=== PATIENT | female | born 1965 | race Caucasian/White ===

== ENCOUNTER 2020-12-13 13:20 | Emergency (ER) | payer OTHER, MEDICAID ==
[~2020-12-13] VITALS: Ht 157.5 cm; Wt 104.3 kg
[2020-12-13 13:30] VITALS: BP_SYST 130
[2020-12-13] MEDS ORDERED: KETOROLAC TROMETHAMINE 60 MG/2 ML VIAL IM ONE (14:00)
[2020-12-13 16:32] LABS: BASOPHILS % (AUTO) 0.1 % (0.0-2.0); EOSINOPHILS # (AUTO) 0.2 K/uL (0.0-0.4); EOSINOPHILS % (AUTO) 1.9 % (0.0-4.0); HEMATOCRIT 38.8 % (36-48); LYMPHOCYTES # (AUTO) 0.6 K/uL (1.0-5.5); LYMPHOCYTES % (AUTO) 6.3 % (20.5-51.5); MEAN CORPUSCULAR HEMOGLOBIN 29 pg (27-31); MEAN CORPUSCULAR HGB CONC 33 % (32-36); MEAN CORPUSCULAR VOLUME 85 fL (79.0-98.0); MONOCYTES # (AUTO) 0.5 K/uL (0.0-1.0); MONOCYTES % (AUTO) 5.2 % (1.7-9.3); NEUTROPHILS # (AUTO) 8.1 K/uL (1.8-7.7); NEUTROPHILS % (AUTO) 86.5 % (40.0-70.0); PLATELET COUNT (AUTO) 218 K/uL (130-430); RED BLOOD CELL COUNT(AUTO) 4.55 MIL/uL (4.2-6.2); RED CELL DISTRIBUTION WIDTH 13.4 % (9.0-15.0); WHITE BLOOD COUNT (AUTO) 9.4 K/uL (4.8-10.8)
[2020-12-13 16:35] LABS: CALCIUM 8.2 mg/dL (8.4-11.0); CHLORIDE 105 mmol/L (98-107); CREATININE 0.81 mg/dL (0.55-1.30); GLUCOSE 100 mg/dL (70-99); POTASSIUM 3.5 mmol/L (3.5-5.1); SODIUM SERUM 141 mmol/L (136-145); UREA NITROGEN, BLOOD 19 mg/dL (8-21)
[2020-12-13 16:41] LABS: ALANINE AMINOTRANSFERASE 23 U/L (12-78); ALBUMIN 3.5 g/dL (3.4-4.8); ASPARTATE AMINOTRANSFERASE 25 U/L (10-37); TOTAL BILIRUBIN 0.2 mg/dL (0.0-1.0)
[2020-12-13 16:45] LABS: ANION GAP < 3 (5-15); GFR AFRICAN AMERICAN 94 mL/min (>90)
[2020-12-13 17:23] LABS: PROTHROMBIN TIME 10.1 SECS (9.5-12.5)
[2020-12-13] MEDS ORDERED: ACET1TAB23 PO (18:39)
[2020-12-13 18:51] VITALS: BP_SYST 128
== END 2020-12-13 18:57 | disposition home or self-care (01) ==
LOC: SED 13:20
DX: S76.112A Strain of left quadriceps muscle, fascia and tendon, initial encounter (principal); S20.212A Contusion of left front wall of thorax, initial encounter; S09.90XA Unspecified injury of head, initial encounter; M54.2 Cervicalgia; V43.52XA Car driver injured in collision with other type car in traffic accident, initial encounter; Y93.89 Activity, other specified; Y92.89 Other specified places as the place of occurrence of the external cause; Y99.8 Other external cause status
CPT/HCPCS: 36415; 70450; 71045; 71260; 72040; 72125; 73560; 74177; 76376; 80053; 81025; 84703; 85025; 85610; 86886; 86900; 86901; 96372; 99285; J1885; Q9967

== ENCOUNTER 2021-11-28 21:24 | Emergency (ER) | payer MEDICAID ==
[~2021-11-28] VITALS: Ht 157.5 cm; Wt 107.0 kg
[2021-11-28 22:14] VITALS: BP_SYST 132
--- NOTE | 2021-11-28 22:21 | NUR ---
Pt placed to ER waiting room with daughter in stable condition.
[2021-11-28 23:24] LABS: BASOPHILS # (AUTO) 0.1 K/uL (0.0-0.2); BASOPHILS % (AUTO) 2.1 % (0.0-2.0); EOSINOPHILS # (AUTO) 0.1 K/uL (0.0-0.4); EOSINOPHILS % (AUTO) 1.1 % (0.0-4.0); HEMATOCRIT 40.8 % (36-48); HEMOGLOBIN 13.9 g/dL (12.0-16.0); LYMPHOCYTES # (AUTO) 0.4 K/uL (1.0-5.5); LYMPHOCYTES % (AUTO) 6.7 % (20.5-51.5); MEAN CORPUSCULAR HEMOGLOBIN 29 pg (27-31); MEAN CORPUSCULAR HGB CONC 34 % (32-36); MEAN CORPUSCULAR VOLUME 84 fL (79.0-98.0); MONOCYTES # (AUTO) 0.3 K/uL (0.0-1.0); MONOCYTES % (AUTO) 4.7 % (1.7-9.3); NEUTROPHILS # (AUTO) 5.6 K/uL (1.8-7.7); NEUTROPHILS % (AUTO) 85.4 % (40.0-70.0); PLATELET COUNT (AUTO) 206 K/uL (130-430); RED BLOOD CELL COUNT(AUTO) 4.87 MIL/uL (4.2-6.2); WHITE BLOOD COUNT (AUTO) 6.5 K/uL (4.8-10.8)
[2021-11-28 23:38] LABS: CALCIUM 8.7 mg/dL (8.4-11.0); CREATININE 0.69 mg/dL (0.55-1.30); POTASSIUM 3.8 mmol/L (3.5-5.1)
[2021-11-28 23:44] LABS: ALBUMIN 3.4 g/dL (3.4-4.8); TOTAL BILIRUBIN 0.4 mg/dL (0.0-1.0)
--- NOTE | 2021-11-29 01:53 | NUR ---
Patient to ER bed 6 to gown for evaluation. Side rails up. Report given to Ifeoma CANO(reg).
[2021-11-29] MEDS ORDERED: LIDOCAINE VISCOUS 2%, 15 ML UDC MM ONE (02:15)
[2021-11-29] MEDS ORDERED: DICYCLOMINE HCL 10 MG/5 ML SOLUTION PO ONE ×2 (02:15)
[2021-11-29] MEDS ORDERED: DICYCLOMINE HCL 20 MG/2 ML AMP IM ONE (02:15)
--- NOTE | 2021-11-29 02:15 | NUR ---
56 y/o F ambulatory to ED with c/o non radiating epigastric pain x1 day accompanied by vomiting and diarrhea. Denies any Chest pain, SOB, fevers. Arrived to ED in no acute distress. Breathing adequately on RA.
[2021-11-29] MEDS ORDERED: MAG-AL HYDROX/SIMETH 30 ML UDC PO ONE ×2 (02:30→02:45)
[2021-11-29] MEDS ORDERED: DICY10CA13 PO (02:36)
[2021-11-29] MEDS ORDERED: MORPHINE 4 MG INJ. 4 MG/ML VIAL IM ONE (03:15)
[2021-11-29] MEDS ORDERED: FAMOTIDINE 20 MG TABLET PO ONE (03:15)
[2021-11-29 04:15] VITALS: BP_SYST 134
--- NOTE | 2021-11-29 04:15 | NUR ---
Patient given written and verbal discharge instructions and verbalizes understanding. ER MD Drummond discussed with patient the results and treatment provided. Patient in stable condition and was picked up by daughter. ID arm band removed. Patient educated on pain management and to follow up with PMD. Pain Scale 1/10. Opportunity for questions provided and answered.
== END 2021-11-29 04:15 | disposition home or self-care (01) ==
LOC: SED 21:24
DX: R10.13 Epigastric pain (principal); R11.10 Vomiting, unspecified; R19.7 Diarrhea, unspecified; R10.30 Lower abdominal pain, unspecified; Z79.899 Other long term (current) drug therapy
CPT/HCPCS: 99284; 80053; 83690; 85025; 36415; 93005; 96372; J2001; J2270